=== PATIENT | male | born 1965 | race Caucasian/White ===

== ENCOUNTER 2016-05-12 13:37 | Outpatient (RCR) | payer OTHER | END 2016-08-10 | LOC: WSOH | DX: M79.89 Other specified soft tissue disorders (principal); M70.22 Olecranon bursitis, left elbow; W00.0XXA Fall on same level due to ice and snow, initial encounter; Y92.512 Supermarket, store or market as the place of occurrence of the external cause; Y99.0 Civilian activity done for income or pay ==

== ENCOUNTER → 2020-03-23 | Outpatient (CLI) | payer SELFPAY | LOC: ZCOL.LAB 19:00 | DX: Z20.828 Contact with and (suspected) exposure to other viral communicable diseases (principal) ==